=== PATIENT | male | born 1970 | race Caucasian/White ===

== ENCOUNTER 2017-08-13 18:13 | Emergency (ER) | payer BC ==
[~2017-08-13] VITALS: Ht 185.4 cm; Wt 90.7 kg
[2017-08-13 18:30] VITALS: BP 152/94
[2017-08-13] MEDS ORDERED: Tetracaine 0.5% Opth 4ml Soln LEFT EYE ONE (18:45)
--- NOTE | 2017-08-13 18:57 | Emergency Room Report ---
History of Present Illness General Chief Complaint: Eye Problems Source: Patient Present Illness HPI 47-year-old male presents to the emergency department complaining of foreign body sensation in the left eye for Corey 1 week. Patient reports that he believes he may have his contact lens stuck behind his eye as he woke up with one morning and there was only one contact in his case. Patient denies pain he reports scratching sensation. Patient states that he looked in the mirror and he saw the edge of the contact lens. UTD with tetanus. Reports increased lacrimation and denies eye discharge. Denies Redness, Loss of vision, Floaters , Flashing lights, Diplopia/blurry vision, Increased tearing. Denies GODOY. Allergies: Coded Allergies: No Known Allergies (Unverified , 08/13/17) Patient History Past Medical History: see triage record Past Surgical History: none Pertinent Family History: none Immunizations: UTD Reviewed Nursing Documentation: PMH: Agreed; PSxH: Agreed Nursing Documentation-PMH Past Medical History: No History, Except For Hx Cardiac Problems: No - 1993 NON-HODGKINS History Of Psychiatric Problem: Yes - DEPRESSION Review of Systems All Other Systems: negative except mentioned in HPI Physical Exam Vital Signs Date Time Temp Pulse Resp B/P (MAP) Pulse Ox O2 Delivery O2 Flow Rate FiO2 08/13/17 18:20 98.2 84 20 152/94 96 Room Air 98.2 Sp02 EP Interpretation: reviewed, normal General Appearance: no apparent distress, alert, GCS 15, non-toxic Head: normocephalic, atraumatic Eyes: left eye fluoroscene uptake, left eye other - Increase fluorescein uptake in a linear fashion in the 3-5 o'Clock position laterally position of the left eye eye, there is no involvement of the iris or pupil. Negative Scott sign. ; bilateral eye normal inspection, bilateral eye PERRL, bilateral eye EOMI, bilateral eye visual acuity ENT: hearing grossly normal, normal voice Neck: full range of motion Respiratory: lungs clear, normal breath sounds, speaking full sentences Cardiovascular #1: regular rate, rhythm Musculoskeletal: back normal, gait/station normal, normal range of motion, non- tender Neurologic: alert, oriented x3, responsive, motor strength/tone normal, sensory intact, normal gait, speech normal, grossly normal Psychiatric: judgement/insight normal Skin: normal color, no rash, warm/dry, well hydrated Procedures Eye Procedure Eye Procedure : Consent: Verbal Alcaine Drops Administered: Yes - Tetracaine opth drops. Eye FB Removal: removal w/ cotton swab - eyelast Patient Tolerated: Well Complications: None Medical Decision Making PA Attestation Dr. mansfield is my supervising Physician whom patient management has been discussed with. Diagnostic Impression: Primary Impression: Eye foreign body Qualified Codes: T15.92XA - Foreign body on external eye, part unspecified, left eye, initial encounter Additional Impression: Corneal abrasion, left Qualified Codes: S05.02XA - Injury of conjunctiva and corneal abrasion without foreign body, left eye, initial encounter ER Course 47-year-old male presents to the emergency department complaining of foreign body sensation in the left eye for Corey 1 week. Patient reports that he believes he may have his contact lens stuck behind his eye as he woke up with one morning and there was only one contact in his case. Patient denies pain he reports scratching sensation. Patient states that he looked in the mirror and he saw the edge of the contact lens. UTD with tetanus. Reports increased lacrimation and denies eye discharge. Denies Redness, Loss of vision, Floaters , Flashing lights, Diplopia/blurry vision, Increased tearing. Denies GODOY. - Pt reportsContact lens use. Ddx considered but are not limited to: corneal abrasion, acute glaucoma, globe rupture, FB, Corneal Ulcer, conjunctivitis. Iridis Vital signs: are WNL, pt. is afebrile H&PE are most consistent with: eye FB: eyelash in eye with superficial corneal abrasions. ORDERS: -Lid Flip: pt. had eyelash in his eye which was removed by sterile cotton tip applicator and tetracaine. -Tetracaine and Fluorescein Stain of the Left eye: -Increase fluorescein uptake in a linear fashion in the 3-5 o'Clock position laterally position of the left eye eye, there is no involvement of the iris or pupil. Negative Scott sign. Pt. had positive relief of pain with tetracaine drops. there was negative evidence of Fb, deep ulcer, or rupture. ED INTERVENTIONS: none at this time. -Discussed with patient importance of nematology teacher follow-up. -D/C with Opth. Abx. DISCHARGE: At this time pt. is stable for d/c to home. Will provide printed patient care instructions, and any necessary prescriptions. Care plan and follow up instructions have been discussed with the patient prior to discharge. . Last Vital Signs Date Time Temp Pulse Resp B/P (MAP) Pulse Ox O2 Delivery O2 Flow Rate FiO2 08/13/17 18:30 98.2 84 20 152/94 96 Room Air 98.2 Disposition: HOME, SELF-CARE Condition: Stable Scripts Ofloxacin (OCUFLOX) 5 Ml Drops 2 DROP OP BID, #5 ML Prov: Constance Giles 08/13/17 Patient Instructions: Corneal Abrasion, Kaig-vy-Hodp, Eye Foreign Body, Easy-to -Read Additional Instructions: Take medications as directed. Follow up with a Keyboard Operator in 3 days, even if your symptoms have resolved. --Please review list of primary care clinics, if you do not already have a primary care provider Return sooner to ED if new symptoms occur, or current symptoms become worse. - Please note that this Emergency Department Report was dictated using [employer] administrator technology software, occasionally this can lead to erroneous entry secondary to interpretation by the dictation equipment. Constance Giles Aug 13, 2017 18:57
[2017-08-13] MEDS ORDERED: Fluorescein Strips LEFT EYE ONE (19:00)
[2017-08-13] MEDS ORDERED: OCUFLOX5 ML OP (19:07)
[2017-08-13 19:31] VITALS: BP 152/94
== END 2017-08-13 19:35 | disposition home or self-care (01) ==
LOC: EMR 18:35
DX: T15.92XA Foreign body on external eye, part unspecified, left eye, initial encounter (principal); S05.02XA Injury of conjunctiva and corneal abrasion without foreign body, left eye, initial encounter; X58.XXXA Exposure to other specified factors, initial encounter; Y92.9 Unspecified place or not applicable
CPT/HCPCS: 99283